=== PATIENT | female | born 1985 | race Caucasian/White ===

== ENCOUNTER 2017-04-30 11:51 | Emergency (ER) | payer SELFPAY ==
[~2017-04-30] VITALS: Ht 165.1 cm; Wt 75.7 kg
[~2017-04-30 11:51] MED LIST: C250T; CYAN10007; MULT-608; OMG1KC; SULF1TAB35 PO
--- NOTE | 2017-04-30 11:58 | ED Chest Pain ---
General Stated Complaint: CHEST PAIN Source: patient, EMS Exam Limitations: no limitations History of Present Illness Time seen by provider: 11:56 Initial Comments To ER per EMS from [facility] [place] care with reports of chest pain. She presented there with chest pain that is central radiating through to her back. This began this morning awakening her from sleep at 7 a.m. She has no associated shortness of breath. She has no personal history of heart disease but her father had a heart attack age of 53 mother had a heart attack at the age of 43. She took at TUMs at home with minimal relief. She states "I can't quit belching". She is noted to be tachypneic upon arrival and states that her hands are tingling. Heart rate 123 sinus. She was given aspirin at the [facility] urgent care. She was given one nitroglycerin in route by EMS without improvement. Timing/Duration: 4-6 hours Severity/Quality: moderate Location: central Radiation: no radiation ASA po USED EQUIPMENT SALES REPRESENTATIVE: No NTG SL USED EQUIPMENT SALES REPRESENTATIVE: No Associated Symptoms: heartburn Allergies and Home Medications Allergies Coded Allergies: No Known Drug Allergies (Verified , 05/26/09) Home Medications No Active Prescriptions or Reported Meds Review of Systems Constitutional: see HPI EENTM: No Symptoms Reported Respiratory: No Symptoms Reported Cardiovascular: No Symptoms Reported Gastrointestinal: See HPI, Abdominal Pain Genitourinary: No Symptoms Reported Musculoskeletal: no symptoms reported Skin: no symptoms reported Psychiatric/Neurological: No Symptoms Reported Endocrine: No Symptoms Reported Hematologic/Lymphatic: No Symptoms Reported Past Jxdehnl-Zrebmu-Tzlzfs Hx Surgeries Surgeries: Hysterectomy, Tonsillectomy Reproductive System Hx Reproductive Disorders: No Sexually Transmitted Disease: No Psychosocial Behavioral Health Disorders: Anxiety Family Medical History Significant Family History: No Pertinent Family Hx Physical Exam Vital Signs Vital Sign - Last 12Hours 04/30/17 11:51 Temp 98.2 Pulse 91 Resp 18 B/P (MAP) 124/82 Pulse Ox 98 O2 Delivery Room Air Capillary Refill : General Appearance: No Apparent Distress, WD/WN, Anxious, Other (unable to sit still, belching very frequently, tachypneic.) HEENT: PERRL/EOMI, TMs Normal Neck: Full Range of Motion, Normal Inspection Respiratory: Normal Breath Sounds, No Accessory Muscle Use, No Respiratory Distress Cardiovascular: Normal Peripheral Pulses Gastrointestinal: Normal Bowel Sounds, Non Tender, Soft Extremity: Normal Capillary Refill, Normal Inspection, Normal Range of Motion Neurologic/Psychiatric: Alert, Oriented x3 Skin: Normal Color, Warm/Dry Progress/Results/Core Measures Results/Orders Lab Results Laboratory Tests Test 04/30/17 12:05 04/30/17 12:40 Range/Units Urine Color YELLOW Urine Clarity CLEAR Urine pH 7 5-9 Urine Specific [place] 1.010 L 1.016-1.022 Urine Protein NEGATIVE NEGATIVE Urine Glucose (UA) NEGATIVE NEGATIVE Urine Ketones NEGATIVE NEGATIVE Urine Nitrite NEGATIVE NEGATIVE Urine Bilirubin NEGATIVE NEGATIVE Urine Urobilinogen NORMAL NORMAL MG/DL Urine Leukocyte Esterase 1+ H NEGATIVE Urine RBC (Auto) NEGATIVE NEGATIVE Urine RBC NONE /HPF Urine WBC 0-2 /HPF Urine Squamous Epithelial Cells >50 H /HPF Urine Renal Epithelial Cells NONE /HPF Urine Crystals NONE /LPF Urine Bacteria NEGATIVE /HPF Urine Casts PRESENT /LPF Urine Hyaline Casts RARE /LPF Urine Mucus NEGATIVE /LPF Urine Culture Indicated NO Urine Opiates Screen NEGATIVE NEGATIVE Urine Oxycodone Screen NEGATIVE NEGATIVE Urine Methadone Screen NEGATIVE NEGATIVE Urine Propoxyphene Screen NEGATIVE NEGATIVE Urine Barbiturates Screen NEGATIVE NEGATIVE Ur Tricyclic Antidepressants Screen NEGATIVE NEGATIVE Urine Phencyclidine Screen NEGATIVE NEGATIVE Urine Amphetamines Screen NEGATIVE NEGATIVE Urine Methamphetamines Screen NEGATIVE NEGATIVE Urine Benzodiazepines Screen NEGATIVE NEGATIVE Urine Cocaine Screen NEGATIVE NEGATIVE Urine Cannabinoids Screen NEGATIVE NEGATIVE White Blood Count 9.4 4.3-11.0 10^3/uL Red Blood Count 4.31 L 4.35-5.85 10^6/uL Hemoglobin 14.2 11.5-16.0 G/DL Hematocrit 42 35-52 % Mean Corpuscular Volume 96 80-99 FL Mean Corpuscular Hemoglobin 33 25-34 PG Mean Corpuscular Hemoglobin Concent 34 32-36 G/DL Red Cell Distribution Width 12.6 10.0-14.5 % Platelet Count 228 130-400 10^3/uL Mean Platelet Volume 12.2 H 7.4-10.4 FL Neutrophils (%) (Auto) 66 42-75 % Lymphocytes (%) (Auto) 29 12-44 % Monocytes (%) (Auto) 5 0-12 % Eosinophils (%) (Auto) 1 0-10 % Basophils (%) (Auto) 0 0-10 % Neutrophils # (Auto) 6.2 1.8-7.8 X 10^3 Lymphocytes # (Auto) 2.7 1.0-4.0 X 10^3 Monocytes # (Auto) 0.5 0.0-1.0 X 10^3 Eosinophils # (Auto) 0.1 0.0-0.3 10^3/uL Basophils # (Auto) 0.0 0.0-0.1 10^3/uL Prothrombin Time 12.7 12.2-14.7 SEC INR Comment 0.9 0.8-1.4 Activated Partial Thromboplast Time 28 24-35 SEC Sodium Level 139 135-145 MMOL/L Potassium Level 3.6 3.6-5.0 MMOL/L Chloride Level 109 H 98-107 MMOL/L Carbon Dioxide Level 20 L 21-32 MMOL/L Anion Gap 10 5-14 MMOL/L Blood Urea Nitrogen 7 7-18 MG/DL Creatinine 0.66 0.60-1.30 MG/DL Estimat Glomerular Filtration Rate > 60 BUN/Creatinine Ratio 11 Glucose Level 100 70-105 MG/DL Calcium Level 9.7 8.5-10.1 MG/DL Magnesium Level 1.9 1.8-2.4 MG/DL Total Bilirubin 0.6 0.1-1.0 MG/DL Aspartate Amino Transf (AST/SGOT) 28 5-34 U/L Alanine Aminotransferase (ALT/SGPT) 58 H 0-55 U/L Alkaline Phosphatase 60 40-136 U/L Myoglobin 29.3 10.0-92.0 NG/ML Troponin I < 0.30 <0.30 NG/ML Total Protein 6.6 6.4-8.2 GM/DL Albumin 3.9 3.2-4.5 GM/DL Lipase 40 8-78 U/L My Orders Orders - MIGUEL ÁNGEL LEVINE APRN Cbc With Automated Diff (04/30/17 11:53) Magnesium (04/30/17 11:53) Chest 1 View, Ap/Pa Only (04/30/17 11:53) Ekg Tracing (04/30/17 11:53) Cardiac Profile 1 (04/30/17 11:53) Comprehensive Metabolic Panel (04/30/17 11:53) Myoglobin Serum (04/30/17 11:53) Protime With Inr (04/30/17 11:53) Partial Thromboplastin Time (04/30/17 11:53) O2 (04/30/17 11:53) Monitor-Rhythm Ecg Trace Only (04/30/17 11:53) Lipid Panel (05/01/17 06:00) Saline Lock/Iv-Start (04/30/17 11:53) Lorazepam Injection (Ativan Injection) (04/30/17 12:00) Urine Bedside (04/30/17 11:53) Ct Angio Chest W (04/30/17 11:53) Lipase (04/30/17 11:54) Drug Screen Stat (Urine) (04/30/17 11:54) Ua Culture If Indicated (04/30/17 12:25) Iohexol Injection (Omnipaque 350 Mg/Ml 1 (04/30/17 12:45) Ns (Ivpb) (Sodium Chloride 0.9% Ivpb Bag (04/30/17 12:45) Us Gallbladder [id number] (04/30/17 13:05) Fentanyl Injection (Sublimaze Injection (04/30/17 13:45) Ketorolac Injection (Toradol Injection) (04/30/17 13:45) Medications Given in ED Current Medications Medications Dose Ordered Sig/Kaylin Route Start Time Stop Time Status Last Admin Dose Admin Fentanyl Citrate 50 mcg ONCE ONCE IVP 04/30/17 13:45 04/30/17 13:46 DC 04/30/17 13:45 50 MCG Iohexol 125 ml ONCE ONCE IV 04/30/17 12:45 04/30/17 12:46 DC 04/30/17 12:52 100 ML Ketorolac Tromethamine 30 mg ONCE ONCE IVP 04/30/17 13:45 04/30/17 13:46 DC 04/30/17 13:41 30 MG Lorazepam 1 mg ONCE ONCE IVP 04/30/17 12:00 04/30/17 12:01 DC 04/30/17 12:04 1 MG Sodium Chloride 100 ml ONCE ONCE IV 04/30/17 12:45 04/30/17 12:46 DC 04/30/17 12:53 80 ML Vital Signs/I&O Vital Sign - Last 12Hours 04/30/17 04/30/17 11:51 14:01 Temp 98.2 Pulse 91 85 Resp 18 18 B/P (MAP) 124/82 112/66 Pulse Ox 98 93 O2 Delivery Room Air Room Air Progress Note : Progress Note NAME: MARIMAR WALL MED REC#: [id number] PT STATUS: REG ER : 1985 PHYSICIAN: MIGUEL ÁNGEL LEVINE APRN ADMIT DATE: 04/30/17/ER Draft Date of Exam:04/30/17 CT ANGIO CHEST W PROCEDURE: CT angiography of the chest with contrast. TECHNIQUE: Multiple contiguous axial images were obtained through the chest after uneventful bolus administration of intravenous contrast. Reconstructed CTA MIP acquisitions were also performed. INDICATION: Mid chest pain. CONTRAST: 100 mL of Omnipaque 350 was administered intravenously. FINDINGS: There is good opacification of the pulmonary arteries with no filling defects to suggest pulmonary embolism. The thoracic aorta is normal in caliber. No dissection is seen. The mediastinum demonstrates no mass. No significantly enlarged lymph nodes are seen in the mediastinum, philip, or axilla. No pericardial or pleural effusion is seen. There is minimal atelectasis seen in the lungs. The osseous structures appear grossly unremarkable. The liver demonstrates diffuse fatty infiltration. IMPRESSION: 1. No pulmonary embolism or aortic dissection. Minimal dependent atelectasis in the lungs is seen. 2. Hepatic steatosis. Dictated on workstation # [id number] Dict: 04/30/17 1323 Trans: 04/30/17 1332 [id number] Interpreted by: QUINTON DURAND MD Electronically signed by: NAME: MARIMAR WALL [facility] REC#: [id number] PT STATUS: REG ER : 1985 PHYSICIAN: MIGUEL ÁNGEL LEVINE APRN ADMIT DATE: 04/30/17/ER Draft Date of Exam:04/30/17 US GALLBLADDER [id number] PROCEDURE: US Gallbladder. TECHNIQUE: Multiple real-time grayscale images were obtained over the right upper quadrant in various projections. INDICATION: Chest pain radiating into the back. FINDINGS: The pancreas is completely obscured by bowel gas. The liver is hyperechoic suggestive of underlying fatty infiltration. The portal vein demonstrates hepatopetal flow. There are no stones or gallbladder wall thickening. The CBD is 4 mm in caliber. The right kidney is 12 cm in length with no hydronephrosis or focal lesion. No fluid collection in the upper right abdomen seen. Sonographic Hurst's sign is reportedly negative. IMPRESSION: No gallstones or evidence of cholecystitis. Liver echogenicity is suggestive of diffuse fatty infiltration or hepatitis. Dictated on workstation # [id number] Dict: 04/30/17 1340 Trans: 04/30/17 1346 [id number] Interpreted by: QUINTON DURAND MD Electronically signed by: Departure Impression Impression: Primary Impression: Nonspecific chest pain Disposition: HOME, SELF-CARE Condition: Improved Departure-Patient Inst. Decision time for Depature: 13:34 Referrals: RODRIGUE BLISS DO (PCP/Family) Primary Care Physician Patient Instructions: Chest Pain (DC) Add. Discharge Instructions: 1. Call Dr. Dr. Bliss to make an appointment to be seen 2. Return to ER for any concerns 3. Scripts Orphenadrine Citrate (Orphenadrine Citrate) 100 Mg Tablet.er 100 MG PO BID Y for PAIN-MODERATE TO SEVERE, #10 TAB Prov: MIGUEL ÁNGEL LEVINE APRN 04/30/17 Copy Copies To 1: RODRIGUE BLISS PETER J APRN Apr 30, 2017 11:58
[2017-04-30] MEDS ORDERED: LORazepam INJ 2 MG/ML (ATIVAN) VIAL IVP ONE (12:00)
--- OUTSIDE RECORDS SUMMARY | 2017-04-30 12:04 | XMS REPORT ---
Author Author TUYET MENDEZ [facility] Address [address] [address] Phone Unavailable Care Team Providers Care Health Editor Name Role Phone TUYET MENDEZ Unavailable Unavailable PROBLEMS Type Condition ICD9-CM Code [id number] Code Onset Dates Condition Status SNOMED Code Problem Encounter for dental examination Z01.20 Active 644500435 ALLERGIES Substance Reaction Event Type Date Status N.K.D.A. Unknown Non Drug Allergy Jul, Unknown SOCIAL HISTORY No smoking Hx information available PLAN OF CARE Activity Details Follow Up 3 Months Reason:perio maint VITAL SIGNS Blood pressure systolic 109 mmHg 2016-07-15 Blood pressure diastolic 64 mmHg 2016-07-15 MEDICATIONS Unknown Medications RESULTS No Results PROCEDURES Procedure Date Ordered Related Diagnosis Body Site Periodontal scaling and root Jul 15, 2016 Periodontal scaling and root Jul 15, 2016 IMMUNIZATIONS No Known Immunizations
--- OUTSIDE RECORDS SUMMARY | 2017-04-30 12:04 | XMS REPORT ---
Author Author NISHA CORRAL Organization [facility] Address [address] [place] [address] Care Team Providers Care Floral Design Teacher Name Role Phone NISHA CORRAL Unavailable PROBLEMS Type Condition ICD9-CM Code BPL30-FA Code Onset Dates Condition Status SNOMED Code Problem Encounter for dental examination Z01.20 Active 298161864 Assessment Encounter for dental examination Z01.20 Apr, Active 197082011 ALLERGIES Substance Reaction Event Type Date Status N.K.D.A. Unknown Non Drug Allergy Apr, Unknown SOCIAL HISTORY No smoking Hx information available PLAN OF CARE VITAL SIGNS Heart Rate 99 bpm 2016-04-25 Blood pressure systolic 123 mmHg 2016-04-25 Blood pressure diastolic 72 mmHg 2016-04-25 MEDICATIONS Unknown Medications RESULTS No Results PROCEDURES Procedure Date Ordered Related Diagnosis Body Site BITEWINGS - FOUR FILMS Apr 25, 2016 PANORAMIC FILM SEE ALSO CODE 49210 Apr 25, 2016 COMP ORAL EVALUATION - NEW/EST PT Apr 25, 2016 Periodontal scaling and root Apr 25, 2016 INTRAORL-PERIAPICAL EA ADD FILM Apr 25, 2016 INTRAORL-PERIAPICAL EA ADD FILM Apr 25, 2016 INTRAORL-PERIAPICAL EA ADD FILM Apr 25, 2016 INTRAORL-PERIAPICAL 1 FILM 31954 Apr 25, 2016 Periodontal scaling and root Apr 25, 2016 INTRAORL-PERIAPICAL EA ADD FILM Apr 25, 2016 INTRAORL-PERIAPICAL EA ADD FILM Apr 25, 2016 IMMUNIZATIONS No Known Immunizations
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
--- NOTE | 2017-04-30 12:25 | Diagnostic Imaging Report ---
Clinical indication: Patient withy chest pain and shortness of breath since 7 this morning and getting worse. Exam: Portable chest x-ray upright view. Comparisons: Chest x-ray dated 12/26/2015. Findings: Lungs/pleura: Lungs are clear. There is no pneumothorax. There is no pleural effusion. Mediastinum: Unremarkable. Pulmonary vasculature: Unremarkable. Heart: Unremarkable. Bones/extrathoracic soft tissue: Unremarkable. Impression: There is no radiographic evidence of acute cardiopulmonary process. Dictated by: Dictated on workstation # [id number]
[2017-04-30] MEDS ORDERED: NS 100 ML (IVPB) BAG IV ONE (12:45)
[2017-04-30] MEDS ORDERED: IOHEXOL 350 MG/ML 150 ML (OMNIPAQUE 350) VIAL IV ONE (12:45)
[2017-04-30 12:48] LABS: BASOPHILS % (AUTO) 0 % (0-10); EOSINOPHILS # (AUTO) 0.1 10^3/uL (0.0-0.3); EOSINOPHILS % (AUTO) 1 % (0-10); LYMPHOCYTES # (AUTO) 2.7 X 10^3 (1.0-4.0); LYMPHOCYTES % (AUTO) 29 % (12-44); MEAN CORPUSCULAR HEMOGLOBIN 33 PG (25-34); MEAN CORPUSCULAR HGB CONC 34 G/DL (32-36); MEAN CORPUSCULAR VOLUME 96 FL (80-99); MEAN PLATELET VOLUME 12.2 FL (7.4-10.4); MONOCYTES # (AUTO) 0.5 X 10^3 (0.0-1.0); MONOCYTES % (AUTO) 5 % (0-12); NEUTROPHILS # (AUTO) 6.2 X 10^3 (1.8-7.8); NEUTROPHILS % (AUTO) 66 % (42-75); PLATELET COUNT 228 10^3/uL (130-400); RED BLOOD COUNT 4.31 10^6/uL (4.35-5.85); RED CELL DISTRIBUTION WIDTH 12.6 % (10.0-14.5); WHITE BLOOD COUNT 9.4 10^3/uL (4.3-11.0)
[2017-04-30 13:09] LABS: INR 0.9 (0.8-1.4); PROTHROMBIN TIME PATIENT 12.7 SEC (12.2-14.7)
[2017-04-30 13:11] LABS: ALANINE AMINOTRANSFERASE 58 U/L (0-55); ALBUMIN 3.9 GM/DL (3.2-4.5); ANION GAP 10 MMOL/L (5-14); ASPARTATE AMINO TRANSFERASE 28 U/L (5-34); BILIRUBIN,TOTAL 0.6 MG/DL (0.1-1.0); BLOOD UREA NITROGEN 7 MG/DL (7-18); BUN/CREATININE RATIO 11; CALCIUM 9.7 MG/DL (8.5-10.1); CARBON DIOXIDE 20 MMOL/L (21-32); CHLORIDE 109 MMOL/L (98-107); CREATININE SERUM 0.66 MG/DL (0.60-1.30); GFR ESTIMATED > 60; GLUCOSE 100 MG/DL (70-105); MAGNESIUM 1.9 MG/DL (1.8-2.4); POTASSIUM 3.6 MMOL/L (3.6-5.0); SODIUM 139 MMOL/L (135-145); TOTAL PROTEIN 6.6 GM/DL (6.4-8.2)
[2017-04-30 13:19] LABS: MYOGLOBIN SERUM 29.3 NG/ML (10.0-92.0)
--- NOTE | 2017-04-30 13:32 | Diagnostic Imaging Report ---
PROCEDURE: CT angiography of the chest with contrast. TECHNIQUE: Multiple contiguous axial images were obtained through the chest after uneventful bolus administration of intravenous contrast. Reconstructed CTA MIP acquisitions were also performed. INDICATION: Mid chest pain. CONTRAST: 100 mL of Omnipaque 350 was administered intravenously. FINDINGS: There is good opacification of the pulmonary arteries with no filling defects to suggest pulmonary embolism. The thoracic aorta is normal in caliber. No dissection is seen. The mediastinum demonstrates no mass. No significantly enlarged lymph nodes are seen in the mediastinum, philip, or axilla. No pericardial or pleural effusion is seen. There is minimal atelectasis seen in the lungs. The osseous structures appear grossly unremarkable. The liver demonstrates diffuse fatty infiltration. IMPRESSION: 1. No pulmonary embolism or aortic dissection. Minimal dependent atelectasis in the lungs is seen. 2. Hepatic steatosis. Dictated by: Dictated on workstation # [id number]
[2017-04-30 13:40] LABS: BILIRUBIN,URINE NEGATIVE (NEGATIVE); KETONES,URINE NEGATIVE (NEGATIVE); LEUKOCYTE ESTERASE ,URINE 1+ (NEGATIVE); NITRITE,URINE NEGATIVE (NEGATIVE); PH,URINE 7 (5-9); PROTEIN,URINE NEGATIVE (NEGATIVE); UROBILINOGEN,URINE NORMAL (NORMAL)
[2017-04-30] MEDS ORDERED: fentaNYL INJECTION 100 MCG/2 ML AMP IVP ONE (13:45)
[2017-04-30] MEDS ORDERED: KETOROLAC 30 MG/ML VIAL IVP ONE (13:45)
--- NOTE | 2017-04-30 13:46 | Diagnostic Imaging Report ---
PROCEDURE: US Gallbladder. TECHNIQUE: Multiple real-time grayscale images were obtained over the right upper quadrant in various projections. INDICATION: Chest pain radiating into the back. FINDINGS: The pancreas is completely obscured by bowel gas. The liver is hyperechoic suggestive of underlying fatty infiltration. The portal vein demonstrates hepatopetal flow. There are no stones or gallbladder wall thickening. The CBD is 4 mm in caliber. The right kidney is 12 cm in length with no hydronephrosis or focal lesion. No fluid collection in the upper right abdomen seen. Sonographic Hurst's sign is reportedly negative. IMPRESSION: No gallstones or evidence of cholecystitis. Liver echogenicity is suggestive of diffuse fatty infiltration or hepatitis. Dictated by: Dictated on workstation # [id number]
[2017-04-30 14:01] VITALS: BP 112/66
[2017-04-30 14:10] LABS: HYALINE CASTS, URINE RARE /LPF; SQUAMOUS EPITHELIAL CELL,UR >50 /HPF; WBC,URINE 0-2 /HPF
[2017-04-30] MEDS ORDERED: ORPH100T PO (14:29)
[2017-04-30 14:56] VITALS: BP 112/76
== END 2017-04-30 14:56 | disposition home or self-care (01) ==
LOC: EDUNIT# 11:51 → ER 11:52
DX: R07.89 Other chest pain (principal); K76.9 Liver disease, unspecified
CPT/HCPCS: 36415; 71010; 71275; 76705; 80053; 80306; 81000; 83690; 83735; 83874; 84484; 84703; 85025; 85610; 85730; 93005; 93041; 96374; 96375

== ENCOUNTER → 2021-10-16 | Outpatient (CLI) | payer BC ==
[~2021-10-16] MED LIST changes: +ORPH100T PO
--- NOTE | 2021-10-16 15:25 | Diagnostic Imaging Report ---
INDICATION: Palpable lump in right breast. COMPARISON: Correlation is made with the diagnostic mammogram from earlier this same day. FINDINGS: Sonographic interrogation of the area of palpable abnormality was performed. This corresponds to the approximately 6 o'clock location. There is a simple appearing cyst at the 6 o'clock location measuring 4 mm x 5 mm x 6 mm. A cyst at the 6:30 location measures 10 mm x 9 mm x 9 mm. A cyst at the 5:30 location measures 11 mm x 6 mm x 7 mm. No solid masses are seen. IMPRESSION: Multiple right breast cysts, likely accounting for the palpable abnormality. No concerning sonographic finding is identified. ACR BI-RADS Category 2: Benign findings. Dictated by: Dictated on workstation # [id number]
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
== END ==
LOC: RAD 13:15
PROVIDERS: ATTEND Family Medicine
DX: N60.01 Solitary cyst of right breast (principal)
CPT/HCPCS: 76642; 77066; G0279; 77062